=== PATIENT | female | born 1960 | race Caucasian/White ===

== ENCOUNTER 2025-07-21 06:41 | Day surgery (SDC) | payer OTHER ==
[~2025-07-21] VITALS: Ht 154.9 cm; Wt 61.4 kg
[~2025-07-21 06:41] MED LIST: SODIUM CHLORIDE 0.9% 1,000 ML ONE
[2025-07-21] MEDS: SODIUM CHLORIDE 0.9% 1,000 ML IV ONE (07:38)
[2025-07-21] MEDS ORDERED: FentaNYL CITRATE PF 100 MCG/2 ML VIAL ONE (08:07)
[2025-07-21] MEDS ORDERED: MIDAZOLAM HCL 2 MG/2 ML VIAL ONE (08:07)
[2025-07-21] MEDS ORDERED: ATOR10TA69 PO (08:08)
[2025-07-21] MEDS ORDERED: PREG75 PO (08:08)
[2025-07-21] MEDS ORDERED: ESCI5TAB16 PO (08:08)
[2025-07-21] MEDS ORDERED: MONT-40 PO (08:08)
[2025-07-21] MEDS ORDERED: ALBU18HF12 IH (08:08)
[2025-07-21] MEDS ORDERED: BUDE10.26 IH (08:08)
[2025-07-21] MEDS ORDERED: FAMO40TA7 PO (08:08)
[2025-07-21] MEDS ORDERED: AMLO2.5T29 PO (08:08)
[2025-07-21] MEDS ORDERED: BUPR-722 PO (08:08)
[2025-07-21] MEDS ORDERED: MIRA50TA PO (08:08)
[2025-07-21] MEDS ORDERED: CHOL10002 PO (08:08)
[2025-07-21] MEDS ORDERED: OMEP20CA12 PO (08:08)
[2025-07-21] MEDS ORDERED: LOSA-381 PO (08:08)
[2025-07-21] MEDS ORDERED: LEVO50TA11 PO (08:08)
[2025-07-21] MEDS ORDERED: LIDOCAINE 2% 11 ML JELLY ONE (09:27)
[2025-07-21] MEDS ORDERED: BENZOCAINE 20% 50 MCG/SPRAY 57 GM ONE (09:27)
[2025-07-21] MEDS ORDERED: ALBUTEROL SULFATE 2.5 MG/0.5 ML NEB SOLUTION NEB ONE (09:27)
[2025-07-21] MEDS ORDERED: LIDOCAINE 4% 50 ML SOLUTION ONE (09:27)
[2025-07-21 09:55] VITALS: PULSE 54; RESP 17; O2SAT 100
== END 2025-07-21 13:20 | disposition home or self-care (01) ==
LOC: SURGERY 06:41
PROVIDERS: ATTEND Internal Medicine Critical Care Medicine
DX: R05.3 Chronic cough (principal); J38.4 Edema of larynx; B37.0 Candidal stomatitis; K76.0 Fatty (change of) liver, not elsewhere classified; I10 Essential (primary) hypertension; Z88.6 Allergy status to analgesic agent; Z98.890 Other specified postprocedural states; Z98.51 Tubal ligation status; Z79.899 Other long term (current) drug therapy
CPT/HCPCS: 31623; 87206; 87101; 87220; 87070; 31624; 71045; 87015; J3010; J2250; J2919; J7030; 88108; J7613; Z7610